=== PATIENT | male | born 1950 | race Caucasian/White ===

== ENCOUNTER 2019-11-24 04:10 | Inpatient (IN) | payer OTHER ==
--- OUTSIDE RECORDS SUMMARY | 2019-11-24 04:42 | XMS ---
:1950 Author Organization [facility] Support Name Relationship Address Phone RE Unavailable Unavailable Unavailable MADY HUI [id number] Re-disclosure Warning The records that you are about to access may contain information from federally- assisted alcohol or drug abuse programs. If such information is present, then the following federally mandated warning applies: This information has been disclosed to you from records protected by federal confidentiality rules (42 CFR part 2). The federal rules prohibit you from making any further disclosure of this information unless further disclosure is expressly permitted by the written consent of the person to whom it pertains or as otherwise permitted by 42 CFR part 2. A general authorization for the release of medical or other information is NOT sufficient for this purpose. The Federal rules restrict any use of the information to criminally investigate or prosecute any alcohol or drug abuse patient.The records that you are about to access may contain highly sensitive health information, the redisclosure of which is protected by Article 27-F of the [facility] Public Health law. If you continue you may haveaccess to information: Regarding HIV / AIDS; Provided by facilities licensed or operated by the [facility] Office of Mental Health; or Provided by the [facility] Office for People With Developmental Disabilities. If such information is present, then the following [facility] mandated warning applies: This information has been disclosed to you from confidential records which are protected by state law. State law prohibits you from making any further disclosure of this information without the specific written consent of the person to whom it pertains, or as otherwise permitted by law. Any unauthorized further disclosure in violation of state law may result in a fine or long term sentence or both. A general authorization for the release of medical or other information is NOT sufficient authorization for further disclosure. Insurance Providers Payer name Policy type Policy ID Covered Covered libertarian's Policy P ignacio / Coverage libertarian ID relationship to [employer] type ureña HIP MEDICARE [id number] VIP 1
[2019-11-24 05:15] LABS: BASO % 0.4 % (0-2.0); EOS % 2.1 % (0-4.5); HEMOGLOBIN 13.8 GM/dL (11.7-16.9); LYMPH % 26.9 % (8-40); MCH 30.3 pg (25.7-33.7); MCHC 33.7 g/dl (32.0-35.9); MEAN CELL VOLUME 90.1 fl (80-96); MEAN PLT VOLUME 9.2 fl (7.5-11.1); MONO % 7.7 % (3.8-10.2); NEUT % 62.9 % (42.8-82.8); PLATELET COUNT 191 K/MM3 (134-434); RBC 4.55 M/mm3 (4.00-5.60); RDW 13.6 % (11.9-15.9); WHITE BLOOD COUNT 6.8 K/mm3 (4.0-10.0)
--- NOTE | 2019-11-24 05:17 | PDOC ---
History of Present Illness - General Chief Complaint: Rectal Bleed Stated Complaint: RECTAL BLEED Time Seen by Provider: 11/24/19 04:11 - History of Present Illness Initial Comments: 11/24/19 04:56 HPI: 69 y/o M Jehovahs witness with hx of GI bleed, CVA/TIA s/p left CEA presenting with 2 episodes of large volume lower GI bleed. First episode occurred yesterday evening following dinner when he had the urge to defecate but had a large bloody BM. Following the bloody BM, he had a transient LLQ abd pain that resolved spontaneously. This morning around 2am he woke up with another urge to defecate and had another large bloody BM. This time he went to shower and felt generalized weakness after getting out and fell forward and caught himself on his hands and knees. He denies head trauma, LOC, fever, chills, chest pain, SOB, n/v, diaphoresis, dysuria, hematuria PMHx: as noted above ROS: as noted SHx: Denies tobacco use; no alcohol use; no rec drugs Allergies: NKDA ROS: GENERAL/CONSTITUTIONAL: No fever or chills. +gen weakness. HEAD, EYES, EARS, NOSE AND THROAT: No change in vision. No ear pain or discharge. No sore throat. CARDIOVASCULAR: No chest pain or shortness of breath RESPIRATORY: No cough, wheezing, or hemoptysis. GASTROINTESTINAL: No nausea, vomiting, diarrhea or constipation. GENITOURINARY: No dysuria, frequency, or change in urination. MUSCULOSKELETAL: No joint or muscle swelling or pain. No neck or back pain. SKIN: No rash NEUROLOGIC: No headache, vertigo, loss of consciousness, or change in stren gth/sensation. ENDOCRINE: No increased thirst. No abnormal weight change HEMATOLOGIC/LYMPHATIC: No anemia, easy bleeding, or history of blood clots. ALLERGIC/IMMUNOLOGIC: No hives or skin allergy. PE: GENERAL: Awake, alert, and fully oriented, no acute distress HEAD: No signs of trauma, normocephalic, atraumatic EYES: EOMI, sclera anicteric, conjunctiva clear without pallor ENT: Auricles normal inspection, hearing grossly normal, nares patent, oropharynx clear without exudates. dry mucosa NECK: Normal ROM, no lymphadenopathy LUNGS: No increased work of breathing, symmetrical chest rise, clear to auscultation bilaterally, no wheezes, crackles or rhonchi HEART: Regular rate, regular rhythm, normal S1 and S2, no murmur, peripheral pulses 2+ and equal bilaterally. ABDOMEN: Soft, nondistended, nontender. No guarding, no rebound. No masses. No CVAT MUSCULOSKELETAL: FROM NEUROLOGICAL: Cranial nerves II through XII grossly intact. Normal speech, stable gait, no focal sensorimotor deficits SKIN: Warm, Dry, normal turgor, no rashes or lesions noted Past History - Psycho-Social/Smoking History Smoking History: Never smoked Have you smoked in the past 12 months: No Information on smoking cessation initiated: No - Substance Abuse Hx (Audit-C & DAST Scrn) How often the patient has a drink containing alcohol: Never Score: In Men: 4 or > Positive; In Women: 3 or > Positive: 0 Screen Result (Pos requires Nsg. Audit-10AR): Negative In the last yr the pt used illegal drug/Rx for NonMed reason: No Score: Yes response is considered Positive: 0 Screen Result (Positive result requires Nsg. DAST-10): Negative *Physical Exam - Vital Signs Last Vital Signs Temp Pulse Resp BP Pulse Ox 97.8 F 91 H 20 144/83 97 11/24/19 04:15 11/24/19 04:15 11/24/19 04:15 11/24/19 04:15 11/24/19 04:15 ED Treatment Course - LABORATORY CBC & Chemistry Diagram: 11/24/19 00:47 11/24/19 00:47 Medical Decision Making - Medical Decision Making 11/24/19 05:17 69 y/o M Jehovahs witness with hx of GI bleed, CVA/TIA s/p left CEA presenting with 2 episodes of large volume lower GI bleed associated with transient LLQ abd pain. HR 91, AF. PE with dry mucosa otherwise unremakrable -cbc, cmp, t&s, coags, fobt, ekg -ct abd/pel 11/24/19 06:37 will signout to followup CT and admit for GI bleed Discharge - Discharge Information Problems reviewed: Yes Clinical Impression/Diagnosis: GI bleed Condition: Stable - Follow up/Referral Referrals: Marychuy Campbell MD [Primary Care Provider] - - Patient Discharge Instructions - Post Discharge Activity
--- NOTE | 2019-11-24 05:24 | PDOC ---
Attending Attestation - Resident Resident Name: Enoch Bass - ED Attending Attestation I have performed the following: I have examined & evaluated the patient, The case was reviewed & discussed with the resident, I agree w/resident's findings & plan, Exceptions are as noted - HPI HPI: 11/24/19 07:25 See resident HPI - Physicial Exam PE: 11/24/19 07:26 Agree with documented exam - Medical Decision Making 11/24/19 07:26 Jehovahs witness here with BRBPR, 2 episodes tonight, a/w lightheadedness in shower. hemorrhoid, diverticulosis? colitis? ibd, ischemia f/u labs, ekg, fobt, lactate fobt neg lactate 2.6 ekg LBBB, no old ekg, no chest pain, does not meet sgarbossa ivf, repeat lactate f/u troponin f/u cta ap will need admission Discharge - Discharge Information Problems reviewed: Yes Clinical Impression/Diagnosis: GI bleed Condition: Stable - Follow up/Referral Referrals: Marychuy Campbell MD [Primary Care Provider] - - Patient Discharge Instructions - Post Discharge Activity
[2019-11-24 05:28] LABS: INR 0.99 (0.83-1.09); PROTHROMBIN TIME (PATIENT) 11.7 SEC (9.7-13.0)
[2019-11-24 05:31] LABS: ACTIVATED PTT 21.7 SECONDS (25.2-36.5)
[2019-11-24 05:38] LABS: ALBUMIN 3.6 g/dl (3.4-5.0); ALK PHOS 76 U/L (45-117); ANION GAP 7 MMOL/L (8-16); BILIRUBIN,TOTAL 0.3 mg/dL (0.2-1); BLOOD UREA NITROGEN 11.5 mg/dL (7-18); CALCIUM 8.1 mg/dL (8.5-10.1); CHLORIDE 106 mmol/L (98-107); CO2 25 mmol/L (21-32); CREATININE 0.9 mg/dL (0.55-1.3); GLUCOSE,RANDOM 208 mg/dL (74-106); POTASSIUM 4.3 mmol/L (3.5-5.1); SGOT/AST 12 U/L (15-37); SGPT/ALT 25 U/L (13-61); SODIUM 138 mmol/L (136-145); TOT PROT 6.7 g/dl (6.4-8.2)
[2019-11-24] MEDS ORDERED: SODIUM CHLORIDE 1,000 ML IV STA (06:18)
--- NOTE | 2019-11-24 07:25 | PDOC ---
*Physical Exam - Vital Signs Last Vital Signs Temp Pulse Resp BP Pulse Ox 97.8 F 88 17 118/68 97 11/24/19 06:52 11/24/19 06:52 11/24/19 06:52 11/24/19 06:52 11/24/19 06:52 - Physical Exam General Appearance: Yes: Nourished, Appropriately Dressed. No: Apparent Distress HEENT: positive: EOMI, TRINI, Normal ENT Inspection Neck: positive: Trachea midline, Supple Respiratory/Chest: positive: Lungs Clear, Normal Breath Sounds Cardiovascular: positive: Regular Rhythm, Regular Rate Gastrointestinal/Abdominal: positive: Soft. 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 NML intact, Fully Oriented, Alert ED Treatment Course - LABORATORY CBC & Chemistry Diagram: 11/24/19 08:40 11/24/19 00:47 - ADDITIONAL ORDERS Additional order review: Laboratory Results 11/24/19 11/24/19 11/24/19 00:47 00:47 00:47 PT with INR 11.70 INR 0.99 PTT (Actin FS) 21.7 L Sodium Potassium Chloride Carbon Dioxide Anion Gap BUN Creatinine Est GFR (CKD-EPI)AfAm Est GFR (CKD-EPI)NonAf Random Glucose Lactic Acid 2.6 H* Calcium Total Bilirubin AST ALT Alkaline Phosphatase Total Protein Albumin Stool Occult Blood Negative 11/24/19 00:47 PT with INR INR PTT (Actin FS) Sodium 138 Potassium 4.3 Chloride 106 Carbon Dioxide 25 Anion Gap 7 L BUN 11.5 Creatinine 0.9 Est GFR (CKD-EPI)AfAm 99.94 Est GFR (CKD-EPI)NonAf 86.23 Random Glucose 208 H Lactic Acid Calcium 8.1 L Total Bilirubin 0.3 AST 12 L ALT 25 Alkaline Phosphatase 76 Total Protein 6.7 Albumin 3.6 Stool Occult Blood 11/24/19 00:47 RBC 4.55 MCV 90.1 MCHC 33.7 RDW 13.6 MPV 9.2 Neutrophils % 62.9 Lymphocytes % 26.9 Monocytes % 7.7 Eosinophils % 2.1 Basophils % 0.4 Medical Decision Making - Medical Decision Making 11/24/19 07:19 - Received as signout from night teaM This is a 69 y/o male with a PMH of TIA, L. sided CVA presenting to the ED due to 2 episodes of lower GI bleed. The first episode was last night. He described it as a large amount of bright red blood, no clots, and associated with LLQ abdominal pain. At 2a.m. he was woken up from sleep and had another episode. This episode was associate with pre-syncope, he did not hit his head, no LOC. - Jehovahs Witness - does not want blood products Stable vitals- Not hypotensive, not tacycardic Patient is full conversational, non toxic in no distress. Vital Signs Temp Pulse Resp BP Pulse Ox 97.8 F 88 17 118/68 97 11/24/19 06:52 11/24/19 06:52 11/24/19 06:52 11/24/19 06:52 11/24/19 06:52 Waiting in CTA abd/pelvis Finish liter > repeat LA Admit GI bleed for endoscopy/colonoscopy 11/24/19 07:54 Patient had another episode of bright red blood in toilet when he went to the bathroom - Remains hemodynamically stable 11/24/19 08:31 IMPRESSION: Possible mild fat stranding identified adjacent to the distal descending colon could represent early colitis or diverticulitis, however clinical correlation is recommended. Large stool volume demonstrated in the distal rectum. Moderate prostatomegaly. Hepatomegaly with diffuse fatty infiltration. - Will give Levo/Flagyl to cover for diverticulitis - Patient admitted to Dr. Mitchell Discharge - Discharge Information Problems reviewed: Yes Clinical Impression/Diagnosis: GI bleed Qualifiers: GI bleed type/associated pathology: unspecified gastrointestinal hemorrhage type Qualified Code(s): K92.2 - Gastrointestinal hemorrhage, unspecified Condition: Stable - Follow up/Referral - Patient Discharge Instructions - Post Discharge Activity
--- OUTSIDE RECORDS SUMMARY | 2019-11-24 09:00 | XMS ---
:1950 Author Organization [facility] Support Name Relationship Address Phone RE, RETIRED Unavailable Unavailable Unavailable RE Unavailable Unavailable Unavailable MADY HUI [address] [place] [id number] Re-disclosure Warning The records that you are [...] is protected by Article 27-F of the [facility] Public Health law. If you continue you may haveaccess to information: Regarding HIV / AIDS; Provided by facilities licensed or operated by the [facility] Office of Mental Health; or Provided by the [facility] Office for People With Developmental Disabilities. If such information is present, then the following [facility] mandated warning applies: This information has [...] law may result in a fine or fci sentence or both. A general authorization for the release of medical or other information is NOT sufficient authorization for further disclosure. Insurance Providers Payer name Policy type Policy ID Covered Covered libertarian's Policy P ignacio / Coverage libertarian ID relationship to [employer] type ure[place] HIP MEDICARE [id number] VIP 1
--- NOTE | 2019-11-24 09:12 | HP ---
Admitting History and Physical - Admission Chief Complaint: Acute rectal bleeding History of Present Illness: This 69 yr old male (Jehovah witness) with PMH of GI bleeding 4 years ago, CVA/TIA, s/p left carotid endarterectomy admitted via ER with an acute rectal bleeding 4 episodes within past 2 days and acute lightheadedness. 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 Cardiovascular: No: AFIB, Aneurysm, Aortic Insufficiency, Aortic Stenosis, CAD, CHF, Deep Vein Thrombosis, HTN, Hyperlipdemia, MT, Mitral Insufficiency, Mitral Stenosis, Murmur, Pulmonary Hypertension, Other Pulmonary: No: Asthma, Bronchitis, Cancer, COPD, O2 Dependent, Pneumonia, Prev iously Intubated, Pulmonary Embolus, Pulmonary Fibrosis, Sleep Apnea, Other Gastrointestinal: Yes: Diverticulosis, GI Bleed Hepatobiliary: No: Cirrhosis, Cholelithiasis, Cholecystitis, Choledocholithiasis, Hepatitis A, Hepatitis B, Hepatitis C, Other Renal/: No: Renal Failure, Renal Inusuff, BPH, Cancer, Hematuria, Hemodi alysis, Neurogenic Bladder, Renal Calculi, UTI, Other Heme/Onc: No: Anemia, B12 Deficiency, Bleeding Disorder, Cancer, Current Chemotherapy, Current Radiation Therapy, Hemochromatosis, Hypercoaguable State, Myeloproliferative Synd, Sickle Cell Disease, Sickle Cell Trait, Thr ombocytopenia, Other Infectious Disease: No: AIDS, C-Diff, Herpes Zoster, HIV, MRSA, STD's, Tuberculosis, VREF, Other Psych: No: Addictions, Anxiety, Bipolar, Depression, Panic, Psychosis, Schizophrenia, Other Musculoskeletal: No: Bursitis, Chronic low back pain, Hemiparesis, Hemiplegia, Osteoarthritis, Paraplegia, Other Rheumatology: No: Fibromyalgia, Gout, Lupus, Rheumatoid Arthritis, Sarcoidosis, Vasculitis, Other ENT: No: Allergic Rhinitis, Sinusitis, Other Endocrine: No: Calvert's Disease, Nany's Disease, Diabetes Insipidus, Diabetes Mellitus, Hyperparathyroidism, Hyperthyroidism, Hypothyroidism, Osteopenia, SIADH, Other Dermatology: No: Basal Cell, Cellulitis, Eczema, Melanoma, Psoriasis, Squamous Cell, Other - Past Surgical History Past Surgical History: Yes: Carotid Endarterectomy (left) - Smoking History Smoking history: Never smoked Have you smoked in the past 12 months: No Home Medications - Allergies Allergies/Adverse Reactions: Allergies Allergy/AdvReac Type Severity Reaction Status Date / Time No Known Allergies Allergy Verified 11/24/19 06:40 Review of Systems - Review of Systems Constitutional: reports: No Symptoms Eyes: reports: No Symptoms HENT: reports: No Symptoms Neck: reports: No Symptoms Cardiovascular: reports: No Symptoms Respiratory: reports: No Symptoms Gastrointestinal: reports: Rectal Bleeding Genitourinary: reports: No Symptoms Breasts: reports: No Symptoms Reported Musculoskeletal: reports: No Symptoms Integumentary: reports: No Symptoms Neurological: reports: No Symptoms Endocrine: reports: No Symptoms Hematology/Lymphatic: reports: No Symptoms Psychiatric: reports: No Symptoms Physical Examination Vital Signs: Vital Signs Temperature 97.8 F 11/24/19 06:52 Pulse Rate 88 11/24/19 06:52 Respiratory Rate 17 11/24/19 06:52 Blood Pressure 118/68 11/24/19 06:52 O2 Sat by Pulse Oximetry (%) 97 11/24/19 06:52 Constitutional: Yes: Well Nourished, No Distress, Calm Eyes: Yes: Conjunctiva Clear, EOM Intact HENT: Yes: Atraumatic, Normocephalic Neck: Yes: Supple, Trachea Midline Cardiovascular: Yes: Regular Rate and Rhythm Respiratory: Yes: Regular, CTA Bilaterally Gastrointestinal: Yes: Normal Bowel Sounds, Soft, Other (hepatomegaly, diffuse fatty infiltraion of the liver) ...Rectal Exam: Yes: Guaiac Negative Renal/: Yes: Other (moderate prostatomegaly) Breast(s): Yes: WNL Musculoskeletal: Yes: WNL Extremities: Yes: WNL Edema: No Peripheral Pulses WNL: Yes Integumentary: Yes: WNL Neurological: Yes: WNL ...Motor Strength: WNL Psychiatric: Yes: WNL Labs: CBC, BMP 11/24/19 00:47 11/24/19 00:47 Imaging - Results Cat Scan: Report Reviewed EKG: Report Reviewed Other: Report Reviewed (lab data reviewed) Problem List - Problems (1) Lightheadedness Code(s): R42 - DIZZINESS AND GIDDINESS (2) Hepatomegaly Code(s): R16.0 - HEPATOMEGALY, NOT ELSEWHERE CLASSIFIED (3) Fatty infiltration of liver Code(s): K76.0 - FATTY (CHANGE OF) LIVER, NOT ELSEWHERE CLASSIFIED (4) BPH (benign prostatic hyperplasia) Code(s): N40.0 - BENIGN PROSTATIC HYPERPLASIA WITHOUT LOWER URINRY TRACT SYMP (5) GI bleed Code(s): K92.2 - GASTROINTESTINAL HEMORRHAGE, UNSPECIFIED (6) Diverticulosis Code(s): K57.90 - DVRTCLOS OF INTEST, PART UNSP, W/O PERF OR ABSCESS W/O BLEED (7) Diverticulitis Code(s): K57.92 - DVTRCLI OF INTEST, PART UNSP, W/O PERF OR ABSCESS W/O BLEED (8) Colitis Code(s): K52.9 - NONINFECTIVE GASTROENTERITIS AND COLITIS, UNSPECIFIED Assessment/Plan Assessment/plan: acute fresh rectal bleeding, acute lightheadedness, diverticulosis, early diverticulitis/ischemic colitis, ?colonic angidysplasia, s/p left CEA, personal hx of alcohol consumption; IV fluids for hydration; IV Levofloxacin and Metronidazole for early acute diverticulitis/colitis; consult to GI and ID; SCD's for DVT prophylaxis; physical therapy for deconditioning.
[2019-11-24 09:27] LABS: HEMATOCRIT 40.6 % (35.4-49); HEMOGLOBIN 13.5 GM/dL (11.7-16.9); MCH 30.2 pg (25.7-33.7); MCHC 33.3 g/dl (32.0-35.9); MEAN CELL VOLUME 90.9 fl (80-96); PLATELET COUNT 209 K/MM3 (134-434); RBC 4.47 M/mm3 (4.00-5.60); RDW 13.8 % (11.9-15.9); WHITE BLOOD COUNT 9.2 K/mm3 (4.0-10.0)
--- NOTE | 2019-11-24 10:50 | CON.GI ---
Consult Consult Specialty:: Gastroenterology Referred by:: Dr Mitchell Reason for Consultation:: Rectal bleeding - History of Present Illness Chief Complaint: Rectal bleeding History of Present Illness: 69M presents with rectal bleeding. He is a [employer]. The CTA does not reveal a bleeding focus but there are inflammatory changes in the descending colon which may represent ischemic colitis. He has had 4 episodes of painless hematochezia since 5pm but no BMs since this morning at 7AM. He had a colonoscopy and EGD in [place], [place] 4 years ago. He was told of an ulcer related to Motrin but of no colonic findings. CT reveals diverticulosis and a fatty liver. He avoids NSAIDs. he has been very constipated despite using a fiber supplement . 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year[place] age 29 History of Recent Travel: No Home Medications - Allergies Allergies/Adverse Reactions: Allergies Allergy/AdvReac Type Severity Reaction Status Date / Time No Known Allergies Allergy Verified 11/24/19 06:40 Family Medical History Family Hx Cancer: Sister ( of gastric cancer age 60) Family Hx Gastrointestinal Disorder: Father ( 81 alcoholic cirrhosis) Other Family History: mother lived to Physical Exam-GI Vital Signs: Vital Signs Temperature 97.8 F 11/24/19 06:52 Pulse Rate 88 11/24/19 06:52 Respiratory Rate 17 11/24/19 06:52 Blood Pressure 118/68 11/24/19 06:52 O2 Sat by Pulse Oximetry (%) 97 11/24/19 07:20 CBC,CMP WBC 9.2 K/mm3 (4.0-10.0) 11/24/19 08:40 RBC 4.47 M/mm3 (4.00-5.60) 11/24/19 08:40 Hgb 13.5 GM/dL (11.7-16.9) 11/24/19 08:40 Hct 40.6 % (35.4-49) 11/24/19 08:40 MCV 90.9 fl (80-96) 11/24/19 08:40 MCH 30.2 pg (25.7-33.7) 11/24/19 08:40 MCHC 33.3 g/dl (32.0-35.9) 11/24/19 08:40 RDW 13.8 % (11.9-15.9) 11/24/19 08:40 Plt Count 209 K/MM3 (134-434) 11/24/19 08:40 MPV 10.0 fl (7.5-11.1) 11/24/19 08:40 Absolute Neuts (auto) 4.3 K/mm3 (1.5-8.0) 11/24/19 00:47 Neutrophils % 62.9 % (42.8-82.8) 11/24/19 00:47 Lymphocytes % 26.9 % (8-40) 11/24/19 00:47 Monocytes % 7.7 % (3.8-10.2) 11/24/19 00:47 Eosinophils % 2.1 % (0-4.5) 11/24/19 00:47 Basophils % 0.4 % (0-2.0) 11/24/19 00:47 Nucleated RBC % 0 % (0-0) 11/24/19 00:47 Sodium 138 mmol/L (136-145) 11/24/19 00:47 Potassium 4.3 mmol/L (3.5-5.1) 11/24/19 00:47 Chloride 106 mmol/L (98-107) 11/24/19 00:47 Carbon Dioxide 25 mmol/L (21-32) 11/24/19 00:47 Anion Gap 7 MMOL/L (8-16) L 11/24/19 00:47 BUN 11.5 mg/dL (7-18) 11/24/19 00:47 Creatinine 0.9 mg/dL (0.55-1.3) 11/24/19 00:47 Est GFR (CKD-EPI)AfAm 99.94 11/24/19 00:47 Est GFR (CKD-EPI)NonAf 86.23 11/24/19 00:47 Random Glucose 208 mg/dL (74-106) H 11/24/19 00:47 Lactic Acid 2.9 mmol/L (0.4-2.0) H* 11/24/19 08:40 Calcium 8.1 mg/dL (8.5-10.1) L 11/24/19 00:47 Iron 65 ug/dL (50-175) 11/24/19 00:47 TIBC 294 ug/dL (250-450) 11/24/19 00:47 Iron Saturation 22 % (17.5-39) 11/24/19 00:47 Unsaturated IBC 229 ug/dL (200-275) 11/24/19 00:47 Ferritin 126.3 ng/ml (8-388) 11/24/19 00:47 Total Bilirubin 0.3 mg/dL (0.2-1) 11/24/19 00:47 AST 12 U/L (15-37) L 11/24/19 00:47 ALT 25 U/L (13-61) 11/24/19 00:47 Alkaline Phosphatase 76 U/L (45-117) 11/24/19 00:47 Troponin I < 0.02 ng/ml (0.00-0.05) 11/24/19 00:47 Total Protein 6.7 g/dl (6.4-8.2) 11/24/19 00:47 Albumin 3.6 g/dl (3.4-5.0) 11/24/19 00:47 Current Medications Generic Name Dose Route Start Last Admin Trade Name Freq PRN Reason Stop Dose Admin Dextrose/Sodium Chloride 20 meq in 1,000 mls @ 100 mls/hr 11/24/19 09:30 11/24/19 11:15 Dextrose 5%-Normal Saline+20 Meq Kcl - IV 100 mls/hr ASDIR MATTI Administration Constitutional: Yes: Anxious Eyes: Yes: Conjunctiva Clear HENT: Yes: Normocephalic Neck: Yes: Trachea Midline Cardiovascular: Yes: Regular Rate and Rhythm Respiratory: Yes: CTA Bilaterally Gastrointestinal Inspection: Yes: WNL ...Auscultate: Yes: Normoactive Bowel Sounds ...Palpate: Yes: Soft, Other (nontender) ...Rectal Exam: Yes: Guaiac Positive (fresh blood on digital exam, no masses, has hemorrhoids) Edema: No Neurological: Yes: Alert, Oriented Labs: CBC, BMP 11/24/19 08:40 11/24/19 00:47 INR, PTT INR 0.99 (0.83-1.09) 11/24/19 00:47 Problem List - Problems (1) Rectal bleeding Code(s): K62.5 - HEMORRHAGE OF ANUS AND RECTUM (2) History of CVA (cerebrovascular accident) Code(s): Z86.73 - PRSNL HX OF TIA (TIA), AND CEREB INFRC W/O RESID DEFICITS (3) Diverticulosis Code(s): K57.90 - DVRTCLOS OF INTEST, PART UNSP, W/O PERF OR ABSCESS W/O BLEED (4) Fatty infiltration of liver Code(s): K76.0 - FATTY (CHANGE OF) LIVER, NOT ELSEWHERE CLASSIFIED Assessment/Plan Impression: - Given the normal Hb this bleeding may prove to be hemorrhoidal in origin but the descending colon findings on CT raise the possibility if ischemic colitis. He could alternatively have bleeding from diverticulosis or angiodysplasias. A bleeding malignancy or stercoral ulcer are less likely etiologies. He is a Zoroastrianism so will defer colonoscopy preparation until the bleeding. stops as this could increase the rate of bleeding. If bleeding increases then CTA will need to be repeated with the intention of doing IR embolization - Personal h/o peptic ulcer and FH of stomach cancer - Fatty liver Plan: - Clear liquids - Miralax TID - Bowel prep on Wednesday - I have discussed colonoscopy and EGD (given his ulcer history and FH of gastric cancer) in detail with Theodore and informed him of the potential for such complications as perforation and hemorrhage and he has given an informed consent. He also consented for rubber band ligation of hemorrhoids. Dr Galeas will be covering this weekend
[2019-11-24 11:14] LABS: IRON SERUM 65 ug/dL (50-175); TOTAL IRON BINDING CAPACITY 294 ug/dL (250-450)
[2019-11-24] MEDS: D5-NS + 20 MEQ KCL - 20 MEQ/1,000 ML INFUS.BAG IV SCH ×2 (11:15→23:05)
--- NOTE | 2019-11-24 12:40 | EKG ---
Test Reason : Blood Pressure : / mmHG Vent. Rate : 087 BPM Atrial Rate : 087 BPM P-R Int : 162 ms QRS Dur : 144 ms QT Int : 396 ms P-R-T Axes : 034 007 106 degrees QTc Int : 476 ms SINUS RHYTHM WITH OCCASIONAL PREMATURE VENTRICULAR COMPLEXES LEFT BUNDLE BRANCH BLOCK ABNORMAL ECG NO PREVIOUS ECGS AVAILABLE Confirmed by JORDAN ROJAS MD ([id number]) on 11/24/2019 12:40:06 PM Referred By: Confirmed By:JORDAN ROJAS MD
--- NOTE | 2019-11-24 15:07 | PN ---
Progress Note (short form) - Note Progress Note: ID CONSULT DICTATED LOWER GI BLEED ? COLITIS OBTAIN C/S EMPIRIC CEFTRIAXONE/ FLAGYL
--- NOTE | 2019-11-24 15:47 | CONS ---
DATE OF CONSULTATION: 11/24/2019 HISTORY: The patient is a 69-year-old male, history of TIA and stroke, evaluated for rectal bleeding. He was admitted to the hospital on November 24, 2019, after having multiple episodes of rectal bleeding. He reports that approximately 1 day prior to admission he had developed recurrent episodes of rectal bleeding associated with left lower quadrant abdominal pain. He presented to the emergency room where he was evaluated, and CAT scan of the abdomen and pelvis was performed and showed possible colitis/diverticulitis involving the distal descending colon. He was seen in consultation by GI. According to the notes, he had had colonoscopy and EGD in [place] approximately 4 years ago. He was told he had an ulcer related to Motrin but no colonic findings. His course has been complicated by abdominal discomfort. At the present time he is awake and alert. He is supine in bed on a stretcher in no acute distress. He denies any nausea, vomiting. No associated fever or chills. Patient lives at home with family members. He denies any ill family members. No recent travel, no recent antibiotic therapy. He originally is from [place], was living in [place] for over 20 years and recently relocated to the [facility]. PAST MEDICAL HISTORY: Positive for TIA and stroke. PAST SURGICAL HISTORY: Status post carotid endarterectomy. ALLERGIES: No known allergies. MEDICATIONS: Include Levaquin, Flagyl. SOCIAL HISTORY: Occasional alcohol use, nonsmoker. REVIEW OF SYSTEMS: Neurologic: No loss of consciousness, seizure activity, focal weakness. Cardiac: Negative chest pain or palpitations. Respiratory: Negative cough or sputum production. Gastrointestinal: As per HPI. Genitourinary: Negative for urinary tract infection. LABORATORY DATA: White count 9.2, hematocrit 40.6, platelets 209, INR 0.9, creatinine 0.9, lactic acid 2.3. PHYSICAL EXAMINATION: General: He is awake and alert. He is not acutely toxic appearing. Vital Signs: Temperature 98, blood pressure 103/70, pulse 86, regular. Respirations 20 per minute. HEENT: Sclerae are anicteric. Cardiovascular: Heart sounds S1, S2. Lungs: Clear. Abdomen: Soft. No tenderness elicited. No mass, rebound, or rigidity. Extremities: Negative for edema. IMPRESSION: 1. Probable lower gastrointestinal bleeding. 2. Possible colitis/diverticulitis. 3. Lactic acidosis. Will obtain cultures. Empiric antibiotic coverage for possible diverticulitis with ceftriaxone and Flagyl. GI followup. Will follow. Thank you for the kind referral. JORDAN GARCIA M.D. MARLEN/[id number]
[2019-11-24] MEDS ORDERED: CEFTRIAXONE 2 GM/100 ML BAG IVPB ONE (16:59)
[2019-11-24] MEDS: CEFTRIAXONE 2 GM in DEXTROSE 5%-WATER 100 ML IVPB SCH (17:05)
[2019-11-24] MEDS: POLYETHYLENE GLYCOL 3350 119 GM BTL PO SCH (21:47)
[2019-11-25 02:48] VITALS: BMI 26.8
--- NOTE | 2019-11-25 05:59 | PN ---
Progress Note, Physician Chief Complaint: Patient seen and examined at the bedside, no acute events from last night, no signs of rectal bleeding. History of Present Illness: This 69 yr old male with PMH of GI bleeding 4 yrs ago, CVA/TIA, and left carotid endarterectomy admitted via ER with an acute rectal bleeding. - Current Medication List Current Medications: Active Medications Bisacodyl (Dulcolax -) 20 mg PO ONCE ONE Stop: 11/26/19 18:01 Dextrose/Sodium Chloride (Dextrose 5%-Normal Saline+20 Meq Kcl -) 20 meq in 1,000 mls @ 100 mls/hr IV ASDIR MATTI Last Admin: 11/24/19 23:05 Dose: 100 mls/hr Documented by: Ceftriaxone Sodium 2 gm/ (Dextrose) 100 mls @ 100 mls/hr IVPB DAILY MATTI; Protocol Last Admin: 11/24/19 17:05 Dose: 100 mls/hr Documented by: Metronidazole (Flagyl 500mg Premixed Ivpb -) 500 mg in 100 mls @ 100 mls/hr IVPB Q8H-IV [facility]TI Last Admin: 11/25/19 01:28 Dose: 100 mls/hr Documented by: Polyethylene Glycol (Miralax (For Daily Use) -) 17 gm PO TID [facility] Last Admin: 11/24/19 21:47 Dose: 17 gm Documented by: Polyethylene Glycol/Electrolytes (Golytely Solution -) 4,000 ml PO ONCE ONE Stop: 11/26/19 09:01 - Objective Vital Signs: Vital Signs Temperature 97.5 F L 11/25/19 01:00 Pulse Rate 82 11/25/19 01:00 Respiratory Rate 18 11/25/19 01:00 Blood Pressure 139/81 11/25/19 01:00 O2 Sat by Pulse Oximetry (%) 99 11/25/19 01:00 Constitutional: Yes: Well Nourished, No Distress, Calm Eyes: Yes: Conjunctiva Clear, EOM Intact HENT: Yes: Atraumatic, Normocephalic Neck: Yes: Supple, Trachea Midline Cardiovascular: Yes: Regular Rate and Rhythm Respiratory: Yes: Regular, CTA Bilaterally Gastrointestinal: Yes: Normal Bowel Sounds, Soft ...Rectal Exam: Yes: Deferred Genitourinary: Yes: WNL Breast(s): Yes: WNL Musculoskeletal: Yes: WNL Extremities: Yes: WNL Edema: No Peripheral Pulses WNL: Yes Integumentary: Yes: WNL Neurological: Yes: WNL ...Motor Strength: WNL Psychiatric: Yes: WNL Labs: CBC, BMP 11/24/19 08:40 11/24/19 00:47 INR, PTT INR 0.99 (0.83-1.09) 11/24/19 00:47 - ....Imaging Other: Report Reviewed (lab data reviewed) Problem List - Problems (1) Lightheadedness Code(s): R42 - DIZZINESS AND GIDDINESS (2) Hepatomegaly Code(s): R16.0 - HEPATOMEGALY, NOT ELSEWHERE CLASSIFIED (3) Fatty infiltration of liver Code(s): K76.0 - FATTY (CHANGE OF) LIVER, NOT ELSEWHERE CLASSIFIED (4) BPH (benign prostatic hyperplasia) Code(s): N40.0 - BENIGN PROSTATIC HYPERPLASIA WITHOUT LOWER URINRY TRACT SYMP (5) GI bleed Code(s): K92.2 - GASTROINTESTINAL HEMORRHAGE, UNSPECIFIED Qualifiers: GI bleed type/associated pathology: unspecified gastrointestinal hemorrhage type Qualified Code(s): K92.2 - Gastrointestinal hemorrhage, unspecified (6) Diverticulosis Code(s): K57.90 - DVRTCLOS OF INTEST, PART UNSP, W/O PERF OR ABSCESS W/O BLEED (7) Diverticulitis Code(s): K57.92 - DVTRCLI OF INTEST, PART UNSP, W/O PERF OR ABSCESS W/O BLEED (8) Colitis Code(s): K52.9 - NONINFECTIVE GASTROENTERITIS AND COLITIS, UNSPECIFIED Assessment/Plan Assessment/plan: acute rectal bleeding, acute lightheadedness, diverticulosis, early diverticulitis/colitis, ischemic colitis, s/p CVA/TIA, s/p left carotid endarterectomy, lactic acidosis, hepatomegaly with diffuse fatty infiltration of the liver, moderate prostatomegaly, personal hx of peptic ulcer disease; IV metronidazole and Ceftriaxone as per ID for acute diverticulitis/colitis; IV fluids for hydration; SCD'S and physical therapy for DVT prophylaxis; out of bed in chair as tolerated.
[2019-11-25] MEDS: POLYETHYLENE GLYCOL 3350 119 GM BTL PO SCH ×3 (06:02→21:16)
[2019-11-25 08:03] LABS: BASO % 0.5 % (0-2.0); HEMATOCRIT 31.5 % (35.4-49); HEMOGLOBIN 10.6 GM/dL (11.7-16.9); LYMPH % 24.9 % (8-40); MCH 30.4 pg (25.7-33.7); MCHC 33.7 g/dl (32.0-35.9); MEAN CELL VOLUME 90.2 fl (80-96); MEAN PLT VOLUME 9.1 fl (7.5-11.1); MONO % 7.9 % (3.8-10.2); NEUT % 63.7 % (42.8-82.8); PLATELET COUNT 162 K/MM3 (134-434); RBC 3.49 M/mm3 (4.00-5.60); RDW 13.5 % (11.9-15.9); WHITE BLOOD COUNT 5.4 K/mm3 (4.0-10.0)
[2019-11-25] MEDS ORDERED: ACETAMINOPHEN 325 MG TABLET (FP) PO PRN (08:10)
[2019-11-25 08:26] LABS: ALBUMIN 3.2 g/dl (3.4-5.0); BILIRUBIN,TOTAL 0.7 mg/dL (0.2-1); BLOOD UREA NITROGEN 8.2 mg/dL (7-18); CALCIUM 8.5 mg/dL (8.5-10.1); CREATININE 0.8 mg/dL (0.55-1.3); POTASSIUM 4.1 mmol/L (3.5-5.1); TOT PROT 5.6 g/dl (6.4-8.2)
[2019-11-25] MEDS ORDERED: DEXTROSE 5%-WATER 100 ML IVPB ONE (08:52)
[2019-11-25] MEDS: CEFTRIAXONE 2 GM in DEXTROSE 5%-WATER 100 ML IVPB SCH (10:55)
[2019-11-25] MEDS: D5-NS + 20 MEQ KCL - 20 MEQ/1,000 ML INFUS.BAG IV SCH (10:55)
--- NOTE | 2019-11-25 23:41 | PN ---
Progress Note (short form) - Note Progress Note: ID AWAKE IN BED +RECTAL BLEED NO C/O ABDOMINAL PAIN NO FEVER/CHILLS AFEBRILE WBC WNL BC (-) COR S1S2 LUNGS CLEAR ABDOMEN SOFT, NON TENDER LGIB R/O COLITIS LACTIC ACIDOSIS CONTINUE EMPIRIC CEFTRIAXONE/ FLAGYL
[2019-11-26] MEDS: D5-NS + 20 MEQ KCL - 20 MEQ/1,000 ML INFUS.BAG IV SCH ×3 (00:57→09:05)
[2019-11-26 04:24] LABS: HEMATOCRIT 28.3 % (35.4-49); HEMOGLOBIN 9.8 GM/dL (11.7-16.9); MCH 31.3 pg (25.7-33.7); MCHC 34.5 g/dl (32.0-35.9); MEAN CELL VOLUME 90.9 fl (80-96); MEAN PLT VOLUME 9.4 fl (7.5-11.1); PLATELET COUNT 170 K/MM3 (134-434); RBC 3.11 M/mm3 (4.00-5.60); RDW 13.8 % (11.9-15.9); WHITE BLOOD COUNT 5.5 K/mm3 (4.0-10.0)
[2019-11-26 04:45] LABS: ALBUMIN 3.1 g/dl (3.4-5.0); BILIRUBIN,TOTAL 0.3 mg/dL (0.2-1); BLOOD UREA NITROGEN 6.7 mg/dL (7-18); CALCIUM 8.3 mg/dL (8.5-10.1); CREATININE 0.8 mg/dL (0.55-1.3); TOT PROT 5.6 g/dl (6.4-8.2)
[2019-11-26] MEDS: POLYETHYLENE GLYCOL 3350 119 GM BTL PO SCH ×4 (05:43→21:00)
--- NOTE | 2019-11-26 08:30 | PN ---
Progress Note, Physician Chief Complaint: Patient seen and examined at the bedside, two bouts of rectal bleeding yesterday, no abdominal pain. History of Present Illness: This 69 yr old male with PMH of GI bleeding 4 years ago, CVA/TIA, left carotid endarterectomy admitted via ER with an acute rectal bleeding. - Current Medication List Current Medications: Active Medications Acetaminophen (Tylenol -) 650 mg PO Q6H PRN PRN Reason: PAIN 6-10 Bisacodyl (Dulcolax -) 20 mg PO ONCE ONE Stop: 11/26/19 18:01 Ceftriaxone Sodium 2 gm/ (Dextrose) 100 mls @ 100 mls/hr IVPB DAILY MATTI; Protocol Last Admin: 11/25/19 10:55 Dose: 100 mls/hr Documented by: Metronidazole (Flagyl 500mg Premixed Ivpb -) 500 mg in 100 mls @ 100 mls/hr IVPB Q8H-IV MATTI Last Admin: 11/26/19 01:30 Dose: 100 mls/hr Documented by: Dextrose/Sodium Chloride (Dextrose 5%-Normal Saline+20 Meq Kcl -) 20 meq in 1,000 mls @ 75 mls/hr IV ASDIR MATTI Last Admin: 11/25/19 10:55 Dose: 75 mls/hr Documented by: Dextrose/Sodium Chloride (Dextrose 5%-Normal Saline+20 Meq Kcl -) 20 meq in 1,000 mls @ 100 mls/hr IV ASDIR MATTI Last Admin: 11/26/19 01:04 Dose: 100 mls/hr Documented by: Influenza Virus Vaccine (Flulaval Quad 1345-3919 Syr) 60 mcg IM .ONCE ONE Stop: 11/25/19 10:01 Pneumococcal 13-Valent Conj Vacc (Prevnar 13 Syringe -) 0.5 ml IM .ONCE ONE Stop: 11/25/19 10:01 Polyethylene Glycol (Miralax (For Daily Use) -) 17 gm PO TID MATTI Last Admin: 11/26/19 05:51 Dose: Not Given Documented by: Polyethylene Glycol/Electrolytes (Golytely Solution -) 4,000 ml PO ONCE ONE Stop: 11/26/19 09:01 - Objective Vital Signs: Vital Signs Temperature 98.1 F 11/26/19 05:00 Pulse Rate 90 11/26/19 05:00 Respiratory Rate 20 11/26/19 05:00 Blood Pressure 129/62 11/26/19 05:00 O2 Sat by Pulse Oximetry (%) 98 11/26/19 05:00 Constitutional: Yes: Well Nourished, No Distress, Calm Eyes: Yes: Conjunctiva Clear, EOM Intact HENT: Yes: Atraumatic, Normocephalic Neck: Yes: Supple Cardiovascular: Yes: Regular Rate and Rhythm Respiratory: Yes: Regular, CTA Bilaterally Gastrointestinal: Yes: Normal Bowel Sounds, Soft ...Rectal Exam: Yes: Deferred Genitourinary: Yes: WNL Breast(s): Yes: WNL Musculoskeletal: Yes: WNL Extremities: Yes: WNL Edema: No Peripheral Pulses WNL: Yes Integumentary: Yes: WNL Neurological: Yes: WNL ...Motor Strength: WNL Psychiatric: Yes: WNL Labs: CBC, BMP 11/26/19 04:03 INR, PTT INR 0.99 (0.83-1.09) 11/24/19 00:47 - ....Imaging Other: Report Reviewed (lab data reviewed) Problem List - Problems (1) Lightheadedness Code(s): R42 - DIZZINESS AND GIDDINESS (2) Hepatomegaly Code(s): R16.0 - HEPATOMEGALY, NOT ELSEWHERE CLASSIFIED (3) Fatty infiltration of liver Code(s): K76.0 - FATTY (CHANGE OF) LIVER, NOT ELSEWHERE CLASSIFIED (4) BPH (benign prostatic hyperplasia) Code(s): N40.0 - BENIGN PROSTATIC HYPERPLASIA WITHOUT LOWER URINRY TRACT SYMP (5) GI bleed Code(s): K92.2 - GASTROINTESTINAL HEMORRHAGE, UNSPECIFIED Qualifiers: GI bleed type/associated pathology: unspecified gastrointestinal hemorrhage type Qualified Code(s): K92.2 - Gastrointestinal hemorrhage, unspecified (6) Diverticulosis Code(s): K57.90 - DVRTCLOS OF INTEST, PART UNSP, W/O PERF OR ABSCESS W/O BLEED (7) Diverticulitis Code(s): K57.92 - DVTRCLI OF INTEST, PART UNSP, W/O PERF OR ABSCESS W/O BLEED (8) Colitis Code(s): K52.9 - NONINFECTIVE GASTROENTERITIS AND COLITIS, UNSPECIFIED Assessment/Plan Assessment/plan: acute rectal bleeding, acute iron deficiency anemia secondary to blood loss, acute diverticultis/colitis, ischemic colitis, s/p CVA/TIA, s/p left CEA; IV Ceftriaxone and metronidazole for acute diverticulitis/colitis; IV fluids for hydration and hypotension; IV venofer for acute iron deficiency anemia secondary to blood loss; SCD'S and physical therapy for DVT prophylaxis; miralax and bisacodyl for constipation.
[2019-11-26 08:32] LABS: BASO % 0.6 % (0-2.0); EOS % 3.2 % (0-4.5); HEMATOCRIT 27.3 % (35.4-49); HEMOGLOBIN 9.2 GM/dL (11.7-16.9); MCH 30.4 pg (25.7-33.7); MCHC 33.7 g/dl (32.0-35.9); MEAN CELL VOLUME 90.4 fl (80-96); MONO % 7.6 % (3.8-10.2); NEUT % 61.6 % (42.8-82.8); PLATELET COUNT 170 K/MM3 (134-434); RBC 3.02 M/mm3 (4.00-5.60); RDW 13.6 % (11.9-15.9); WHITE BLOOD COUNT 4.9 K/mm3 (4.0-10.0)
[2019-11-26] MEDS ORDERED: DEXTROSE 5%-WATER 100 ML IVPB ONE (08:57)
[2019-11-26] MEDS ORDERED: PEG 3350/NA SULF BICARB CL/KCL 4000 ML SOLN.RECON PO ONE (09:00)
[2019-11-26] MEDS: CEFTRIAXONE 2 GM in DEXTROSE 5%-WATER 100 ML IVPB SCH (09:00)
[2019-11-26] MEDS ORDERED: IRON SUCROSE INJECTION 200 MG in SODIUM CHLORIDE 90 ML IVPB ONE (11:00)
[2019-11-26 17:05] LABS: BASO % 0.5 % (0-2.0); EOS % 2.9 % (0-4.5); HEMATOCRIT 27.1 % (35.4-49); HEMOGLOBIN 9.2 GM/dL (11.7-16.9); LYMPH % 31.2 % (8-40); MCH 31.1 pg (25.7-33.7); MCHC 33.8 g/dl (32.0-35.9); MEAN PLT VOLUME 9.8 fl (7.5-11.1); MONO % 7.3 % (3.8-10.2); NEUT % 58.1 % (42.8-82.8); PLATELET COUNT 164 K/MM3 (134-434); RBC 2.95 M/mm3 (4.00-5.60); RDW 13.6 % (11.9-15.9); WHITE BLOOD COUNT 5.2 K/mm3 (4.0-10.0)
--- NOTE | 2019-11-26 17:41 | PN.GI ---
GI Progress Note Subjective: patient tolerating bowel preparation, Hgb down to 9. He denies any chest pain, syncope. Lat bloody movement was at 3 AM - Objective Vital Signs: Vital Signs Temperature 97.6 F 11/26/19 13:00 Pulse Rate 78 11/26/19 13:00 Respiratory Rate 18 11/26/19 13:00 Blood Pressure 140/73 11/26/19 13:00 O2 Sat by Pulse Oximetry (%) 99 11/26/19 13:00 Constitutional: Obese Eyes: Yes: Conjunctiva Clear HENT: Yes: Atraumatic Neck: Yes: Supple Cardiovascular: Yes: Regular Rate and Rhythm Respiratory: Yes: CTA Bilaterally ...Palpate: Yes: Soft. No: Firm/Rigid, Guarding, Hepatomegaly, Mass, Pulsatile Mass, Splenomegaly, Tenderness Labs: CBC, BMP 11/26/19 16:19 11/26/19 04:03 INR, PTT INR 0.99 (0.83-1.09) 11/24/19 00:47 Problem List - Problems (1) Lower GI bleed Assessment/Plan: R> for EGD and colonoscopy in am patient was made aware. Code(s): K92.2 - GASTROINTESTINAL HEMORRHAGE, UNSPECIFIED
[2019-11-26] MEDS ORDERED: BISACODYL 5 MG TABLET.DR (FP) PO ONE (18:00)
--- NOTE | 2019-11-26 22:55 | PN ---
Progress Note, Physician Chief Complaint: RECEIVING PREP FOR COLONSCOPY NO C/O ABDOMINAL PAIN OR RECTAL BLEEDING NO FEVER/CHILLS WBC WNL - Current Medication List Current Medications: Active Medications Acetaminophen (Tylenol -) 650 mg PO Q6H PRN PRN Reason: PAIN 6-10 Ceftriaxone Sodium 2 gm/ (Dextrose) 100 mls @ 100 mls/hr IVPB DAILY MATTI; Protocol Last Admin: 11/26/19 09:00 Dose: 100 mls/hr Documented by: Metronidazole (Flagyl 500mg Premixed Ivpb -) 500 mg in 100 mls @ 100 mls/hr IVPB Q8H-IV MATTI Last Admin: 11/26/19 16:59 Dose: 100 mls/hr Documented by: Dextrose/Sodium Chloride (Dextrose 5%-Normal Saline+20 Meq Kcl -) 20 meq in 1,000 mls @ 100 mls/hr IV ASDIR MATTI Last Admin: 11/26/19 01:04 Dose: 100 mls/hr Documented by: Influenza Virus Vaccine (Flulaval Quad [id number] Syr) 60 mcg IM .ONCE ONE Stop: 11/25/19 10:01 Pneumococcal 13-Valent Conj Vacc (Prevnar 13 Syringe -) 0.5 ml IM .ONCE ONE Stop: 11/25/19 10:01 Polyethylene Glycol (Miralax (For Daily Use) -) 17 gm PO TID [facility] Last Admin: 11/26/19 21:00 Dose: 17 gm Documented by: - Objective Vital Signs: Vital Signs Temperature 98.3 F 11/26/19 18:00 Pulse Rate 81 11/26/19 18:00 Respiratory Rate 18 11/26/19 18:00 Blood Pressure 121/67 11/26/19 18:00 O2 Sat by Pulse Oximetry (%) 95 11/26/19 18:00 Constitutional: Yes: No Distress Eyes: Yes: Conjunctiva Clear Cardiovascular: Yes: Regular Rate and Rhythm, S1, S2 Respiratory: Yes: CTA Bilaterally Gastrointestinal: Yes: Normal Bowel Sounds, Soft Edema: No Labs: CBC, BMP 11/26/19 16:19 11/26/19 04:03 INR, PTT INR 0.99 (0.83-1.09) 11/24/19 00:47 Assessment/Plan LOWER GI BLEED R/O COLITIS FOR COLONOSCOPY CONTINUE EMPIRIC CEFTRIAXOME/ FLAGYL
[2019-11-27] MEDS: D5-NS + 20 MEQ KCL - 20 MEQ/1,000 ML INFUS.BAG IV SCH (04:13)
[2019-11-27] MEDS: POLYETHYLENE GLYCOL 3350 119 GM BTL PO SCH ×3 (05:43→21:11)
--- NOTE | 2019-11-27 08:19 | PN ---
Progress Note, Physician Chief Complaint: Patient seen and examined at the bedside, no acute events from last night, feeling well, no abdominal pain, no rectal bleeding. History of Present Illness: This 69 yr old male with PMH of GI bleeding 4 years ago, CVA/TIA, left CEA admitted via ER with an acute rectal bleeding and iron deficiency anemia. - Current Medication List Current Medications: Active Medications Acetaminophen (Tylenol -) 650 mg PO Q6H PRN PRN Reason: PAIN 6-10 Ceftriaxone Sodium 2 gm/ (Dextrose) 100 mls @ 100 mls/hr IVPB DAILY MATTI; Protocol Last Admin: 11/26/19 09:00 Dose: 100 mls/hr Documented by: Metronidazole (Flagyl 500mg Premixed Ivpb -) 500 mg in 100 mls @ 100 mls/hr IVPB Q8H-IV MATTI Last Admin: 11/27/19 01:22 Dose: 100 mls/hr Documented by: Dextrose/Sodium Chloride (Dextrose 5%-Normal Saline+20 Meq Kcl -) 20 meq in 1,000 mls @ 100 mls/hr IV ASDIR MATTI Last Admin: 11/27/19 04:13 Dose: 100 mls/hr Documented by: Influenza Virus Vaccine (Flulaval Quad [id number] Syr) 60 mcg IM .ONCE ONE Stop: 11/25/19 10:01 Pneumococcal 13-Valent Conj Vacc (Prevnar 13 Syringe -) 0.5 ml IM .ONCE ONE Stop: 11/25/19 10:01 Polyethylene Glycol (Miralax (For Daily Use) -) 17 gm PO TID MATTI Last Admin: 11/27/19 05:43 Dose: Not Given Documented by: - Objective Vital Signs: Vital Signs Temperature 97.8 F 11/27/19 06:00 Pulse Rate 76 11/27/19 06:00 Respiratory Rate 18 11/27/19 06:00 Blood Pressure 146/73 11/27/19 06:00 O2 Sat by Pulse Oximetry (%) 95 11/27/19 06:00 Constitutional: Yes: Well Nourished, No Distress, Calm Eyes: Yes: Conjunctiva Clear, EOM Intact HENT: Yes: Atraumatic, Normocephalic Neck: Yes: Supple, Trachea Midline Cardiovascular: Yes: Regular Rate and Rhythm Respiratory: Yes: Regular, CTA Bilaterally Gastrointestinal: Yes: Normal Bowel Sounds, Soft ...Rectal Exam: Yes: Deferred Genitourinary: Yes: WNL Breast(s): Yes: WNL Musculoskeletal: Yes: WNL Extremities: Yes: WNL Edema: No Peripheral Pulses WNL: Yes Integumentary: Yes: WNL Neurological: Yes: WNL ...Motor Strength: WNL Psychiatric: Yes: WNL Labs: INR, PTT INR 0.99 (0.83-1.09) 11/24/19 00:47 - ....Imaging Other: Report Reviewed (lab data reviewed) Problem List - Problems (1) Lightheadedness Code(s): R42 - DIZZINESS AND GIDDINESS (2) Hepatomegaly Code(s): R16.0 - HEPATOMEGALY, NOT ELSEWHERE CLASSIFIED (3) Fatty infiltration of liver Code(s): K76.0 - FATTY (CHANGE OF) LIVER, NOT ELSEWHERE CLASSIFIED (4) BPH (benign prostatic hyperplasia) Code(s): N40.0 - BENIGN PROSTATIC HYPERPLASIA WITHOUT LOWER URINRY TRACT SYMP (5) GI bleed Code(s): K92.2 - GASTROINTESTINAL HEMORRHAGE, UNSPECIFIED Qualifiers: GI bleed type/associated pathology: unspecified gastrointestinal hemorrhage type Qualified Code(s): K92.2 - Gastrointestinal hemorrhage, unspecified (6) Diverticulosis Code(s): K57.90 - DVRTCLOS OF INTEST, PART UNSP, W/O PERF OR ABSCESS W/O BLEED (7) Diverticulitis Code(s): K57.92 - DVTRCLI OF INTEST, PART UNSP, W/O PERF OR ABSCESS W/O BLEED (8) Colitis Code(s): K52.9 - NONINFECTIVE GASTROENTERITIS AND COLITIS, UNSPECIFIED Assessment/Plan Assessment/plan: acute rectal bleeding, acute early diverticulitis/colitis, acute ischemic colitis, ?colonic angiodysplasia, s/p CVA/TIA, s/p left carotid endarterectomy; IV venofer for an acute iron deficiency anemia secondary to acute blood loss; IV Ceftriaxone and Metronidazole for acute diverticulitis/colitis; SCD'S, out of bed in chair as tolerated and physical therapy for DVT prophylaxis; IV fluids for hydration and hypotension; miralax for constipation.
[2019-11-27 08:27] LABS: ALBUMIN 3.6 g/dl (3.4-5.0); BASO % 0.4 % (0-2.0); BILIRUBIN,TOTAL 0.4 mg/dL (0.2-1); BLOOD UREA NITROGEN 3.9 mg/dL (7-18); CALCIUM 8.6 mg/dL (8.5-10.1); CREATININE 0.9 mg/dL (0.55-1.3); EOS % 2.2 % (0-4.5); HEMATOCRIT 28.1 % (35.4-49); HEMOGLOBIN 9.6 GM/dL (11.7-16.9); LYMPH % 36.4 % (8-40); MCH 31.1 pg (25.7-33.7); MEAN CELL VOLUME 91.2 fl (80-96); MEAN PLT VOLUME 9.5 fl (7.5-11.1); MONO % 7.3 % (3.8-10.2); NEUT % 53.7 % (42.8-82.8); PLATELET COUNT 207 K/MM3 (134-434); POTASSIUM 3.8 mmol/L (3.5-5.1); RBC 3.08 M/mm3 (4.00-5.60); RDW 13.6 % (11.9-15.9); TOT PROT 6.3 g/dl (6.4-8.2); WHITE BLOOD COUNT 7.3 K/mm3 (4.0-10.0)
[2019-11-27] MEDS ORDERED: DEXTROSE 5%-WATER 100 ML IVPB ONE (09:37)
[2019-11-27] MEDS: CEFTRIAXONE 2 GM in DEXTROSE 5%-WATER 100 ML IVPB SCH (09:52)
[2019-11-27] MEDS ORDERED: FLU VACCINE (FLULAVAL) PF 60 MCG/0.5 ML SYRINGE 2020-2021 IM ONE (10:00)
[2019-11-27] MEDS ORDERED: PNEUMOC 13-VAL CONJ-DIP CRM/PF 0.5 ML DISP.SYRIN IM ONE (10:00)
--- NOTE | 2019-11-27 12:45 | PN ---
Progress Note (short form) - Note Progress Note: GI Procedure Note: Please see scanned EGD and colonoscopy reports. The EGD revealed a small linear and shallow proximal antral ulcer with adjacent gastritis. No bleeding was evident. Colonoscopy revealed resolving ischemic colitis in the descending colon severe diverticulitis was noted universally. A 3millimter polyp was removed from the cecum. The bleeding is felt to have emanated from the ischemic colitis. Will advance diet. Will need pantaprazole BID therapy and repeat EGD in 3 months. If no recurring bleeding occurs can consider discharge in am. Problem List - Problems (1) Ischemic colitis Code(s): K55.9 - VASCULAR DISORDER OF INTESTINE, UNSPECIFIED (2) Rectal bleeding Code(s): K62.5 - HEMORRHAGE OF ANUS AND RECTUM (3) History of CVA (cerebrovascular accident) Code(s): Z86.73 - PRSNL HX OF TIA (TIA), AND CEREB INFRC W/O RESID DEFICITS (4) Diverticulosis Code(s): K57.90 - DVRTCLOS OF INTEST, PART UNSP, W/O PERF OR ABSCESS W/O BLEED (5) Fatty infiltration of liver Code(s): K76.0 - FATTY (CHANGE OF) LIVER, NOT ELSEWHERE CLASSIFIED (6) Colon polyp Code(s): K63.5 - POLYP OF COLON (7) Gastric ulcer Code(s): K25.9 - GASTRIC ULCER, UNSP ACUTE OR CHRONIC, W/O HEMOR OR PERF (8) Gastritis and duodenitis Code(s): K29.90 - GASTRODUODENITIS, UNSPECIFIED, WITHOUT BLEEDING (9) Bleeding external hemorrhoids Code(s): K64.4 - RESIDUAL HEMORRHOIDAL SKIN TAGS
[2019-11-27] MEDS ORDERED: PT OWN MED DRAWER 7, Y5N ONE ×2 (12:54→13:23)
[2019-11-27] MEDS: PANTOPRAZOLE 40 MG TABLET PO SCH (21:10)
--- NOTE | 2019-11-27 22:24 | PN ---
Progress Note, Physician Chief Complaint: S/P COLONSCOPY FINDINGS NOTED NO C/O ABDOMINAL PAIN OR RECTAL BLEEDING NO FEVER/CHILLS WBC WNL - Current Medication List Current Medications: Active Medications Acetaminophen (Tylenol -) 650 mg PO Q6H PRN PRN Reason: PAIN 6-10 Ceftriaxone Sodium 2 gm/ (Dextrose) 100 mls @ 100 mls/hr IVPB DAILY [facility]; Protocol Last Admin: 11/27/19 09:52 Dose: 100 mls/hr Documented by: Metronidazole (Flagyl 500mg Premixed Ivpb -) 500 mg in 100 mls @ 100 mls/hr IVPB Q8H-IV [facility]TI Last Admin: 11/27/19 18:35 Dose: 100 mls/hr Documented by: Pantoprazole Sodium (Protonix -) 40 mg PO BID [facility] Last Admin: 11/27/19 21:10 Dose: 40 mg Documented by: Polyethylene Glycol (Miralax (For Daily Use) -) 17 gm PO TID [facility] Last Admin: 11/27/19 21:11 Dose: 17 gm Documented by: - Objective Vital Signs: Vital Signs Temperature 98.9 F 11/27/19 21:08 Pulse Rate 75 11/27/19 21:08 Respiratory Rate 18 11/27/19 21:08 Blood Pressure 135/60 11/27/19 21:08 O2 Sat by Pulse Oximetry (%) 97 11/27/19 21:08 Constitutional: Yes: No Distress Eyes: Yes: Conjunctiva Clear Cardiovascular: Yes: Regular Rate and Rhythm, S1, S2 Respiratory: Yes: CTA Bilaterally Gastrointestinal: Yes: Normal Bowel Sounds, Soft, Other (NO ABDOMINAL TENDERNESS) Labs: CBC, BMP 11/27/19 07:05 11/27/19 07:05 INR, PTT INR 0.99 (0.83-1.09) 11/24/19 00:47 Assessment/Plan LOWER GI BLEED RESOLVED CONTINUE EMPIRIC CEFTRIAXOME/ FLAGYL
[2019-11-28] MEDS: POLYETHYLENE GLYCOL 3350 119 GM BTL PO SCH ×3 (05:41→21:44)
--- NOTE | 2019-11-28 08:14 | PN ---
Progress Note, Physician Chief Complaint: Patient seen and examined at the bedside, brown stool mixed with blood today in am. History of Present Illness: This 69 yr old male with PMH of GI bleeding 4 years ago, CVA/TIA, and left carotid endarterectomy admitted via ER with an acute rectal bleeding, and an acute iron deficiency anemia secondary to acute blood loss. - Current Medication List Current Medications: Active Medications Acetaminophen (Tylenol -) 650 mg PO Q6H PRN PRN Reason: PAIN 6-10 Ceftriaxone Sodium 2 gm/ (Dextrose) 100 mls @ 100 mls/hr IVPB DAILY [facility]; Protocol Last Admin: 11/27/19 09:52 Dose: 100 mls/hr Documented by: Metronidazole (Flagyl 500mg Premixed Ivpb -) 500 mg in 100 mls @ 100 mls/hr IVPB Q8H-IV [facility] Last Admin: 11/28/19 01:16 Dose: 100 mls/hr Documented by: Pantoprazole Sodium (Protonix -) 40 mg PO BID [facility] Last Admin: 11/27/19 21:10 Dose: 40 mg Documented by: Polyethylene Glycol (Miralax (For Daily Use) -) 17 gm PO TID [facility] Last Admin: 11/28/19 05:41 Dose: Not Given Documented by: - Objective Vital Signs: Vital Signs Temperature 98 F 11/28/19 05:00 Pulse Rate 80 11/28/19 05:00 Respiratory Rate 18 11/28/19 05:00 Blood Pressure 149/76 11/28/19 05:00 O2 Sat by Pulse Oximetry (%) 98 11/28/19 05:00 Constitutional: Yes: Well Nourished, No Distress, Calm Eyes: Yes: Conjunctiva Clear, EOM Intact HENT: Yes: Atraumatic, Normocephalic Neck: Yes: Supple, Trachea Midline Cardiovascular: Yes: Regular Rate and Rhythm Respiratory: Yes: Regular, CTA Bilaterally Gastrointestinal: Yes: Normal Bowel Sounds, Soft ...Rectal Exam: Yes: Deferred Genitourinary: Yes: WNL Breast(s): Yes: WNL Musculoskeletal: Yes: WNL Extremities: Yes: WNL Edema: No Peripheral Pulses WNL: Yes Integumentary: Yes: WNL Neurological: Yes: WNL ...Motor Strength: WNL Psychiatric: Yes: WNL Labs: CBC, BMP 11/27/19 07:05 10/12/20 07:05 INR, PTT INR 0.99 (0.83-1.09) 11/24/19 00:47 - ....Imaging Other: Report Reviewed (lab data reviewed) Problem List - Problems (1) Lightheadedness Code(s): R42 - DIZZINESS AND GIDDINESS (2) Hepatomegaly Code(s): R16.0 - HEPATOMEGALY, NOT ELSEWHERE CLASSIFIED (3) Fatty infiltration of liver Code(s): K76.0 - FATTY (CHANGE OF) LIVER, NOT ELSEWHERE CLASSIFIED (4) BPH (benign prostatic hyperplasia) Code(s): N40.0 - BENIGN PROSTATIC HYPERPLASIA WITHOUT LOWER URINRY TRACT SYMP (5) GI bleed Code(s): K92.2 - GASTROINTESTINAL HEMORRHAGE, UNSPECIFIED Qualifiers: GI bleed type/associated pathology: unspecified gastrointestinal hemorrhage type Qualified Code(s): K92.2 - Gastrointestinal hemorrhage, unspecified (6) Diverticulosis Code(s): K57.90 - DVRTCLOS OF INTEST, PART UNSP, W/O PERF OR ABSCESS W/O BLEED (7) Diverticulitis Code(s): K57.92 - DVTRCLI OF INTEST, PART UNSP, W/O PERF OR ABSCESS W/O BLEED (8) Colitis Code(s): K52.9 - NONINFECTIVE GASTROENTERITIS AND COLITIS, UNSPECIFIED Assessment/Plan Assessment/plan: acute rectal bleeding still persists, acute iron deficiency anemia secondary to acute blood loss, acute diverticulitis and ischemic colitis of the descending colon, acute gastritis, acute antral ulcer; IV Ceftriaxone and Metronidazole for acute diverticulitis/ischemic colitis; oral pantoprazole for acute antral ulcer and gastritis; miralax for constipation; SCD's and physical therapy for DVT prophylaxis.
[2019-11-28] MEDS ORDERED: DEXTROSE 5%-WATER 100 ML IVPB ONE (09:29)
[2019-11-28] MEDS: PANTOPRAZOLE 40 MG TABLET PO SCH ×2 (10:03→21:44)
[2019-11-28] MEDS: CEFTRIAXONE 2 GM in DEXTROSE 5%-WATER 100 ML IVPB SCH (10:04)
[2019-11-28 10:23] LABS: BASO % 0.5 % (0-2.0); EOS % 2.6 % (0-4.5); HEMATOCRIT 26.6 % (35.4-49); LYMPH % 22.4 % (8-40); MCH 31.2 pg (25.7-33.7); MEAN CELL VOLUME 91.9 fl (80-96); MEAN PLT VOLUME 9.1 fl (7.5-11.1); MONO % 7.1 % (3.8-10.2); NEUT % 67.4 % (42.8-82.8); PLATELET COUNT 202 K/MM3 (134-434); RBC 2.89 M/mm3 (4.00-5.60); RDW 13.9 % (11.9-15.9); WHITE BLOOD COUNT 6.2 K/mm3 (4.0-10.0)
[2019-11-28 10:49] LABS: ALBUMIN 3.3 g/dl (3.4-5.0); BILIRUBIN,TOTAL 0.3 mg/dL (0.2-1); BLOOD UREA NITROGEN 5.6 mg/dL (7-18); CALCIUM 8.7 mg/dL (8.5-10.1); CREATININE 0.9 mg/dL (0.55-1.3); POTASSIUM 4.2 mmol/L (3.5-5.1); TOT PROT 5.9 g/dl (6.4-8.2)
[2019-11-28 16:08] LABS: BASO % 0.4 % (0-2.0); EOS % 3.1 % (0-4.5); HEMATOCRIT 26.8 % (35.4-49); HEMOGLOBIN 9.2 GM/dL (11.7-16.9); LYMPH % 29.2 % (8-40); MCH 31.7 pg (25.7-33.7); MCHC 34.2 g/dl (32.0-35.9); MEAN CELL VOLUME 92.8 fl (80-96); MEAN PLT VOLUME 9.2 fl (7.5-11.1); MONO % 7.8 % (3.8-10.2); NEUT % 59.5 % (42.8-82.8); PLATELET COUNT 210 K/MM3 (134-434); RBC 2.89 M/mm3 (4.00-5.60); RDW 13.9 % (11.9-15.9); WHITE BLOOD COUNT 6.1 K/mm3 (4.0-10.0)
--- NOTE | 2019-11-28 16:21 | PN ---
Progress Note, Physician Chief Complaint: S/P COLONSCOPY FINDINGS NOTED NO C/O ABDOMINAL PAIN OR RECTAL BLEEDING NO FEVER/CHILLS WBC WNL - Current Medication List Current Medications: Active Medications Acetaminophen (Tylenol -) 650 mg PO Q6H PRN PRN Reason: PAIN 6-10 Last Admin: 11/28/19 10:04 Dose: 650 mg Documented by: Ceftriaxone Sodium 2 gm/ (Dextrose) 100 mls @ 100 mls/hr IVPB DAILY [facility]; Protocol Last Admin: 11/28/19 10:04 Dose: 100 mls/hr Documented by: Metronidazole (Flagyl 500mg Premixed Ivpb -) 500 mg in 100 mls @ 100 mls/hr IVPB Q8H-IV MATTI Last Admin: 11/28/19 10:03 Dose: 100 mls/hr Documented by: Pantoprazole Sodium (Protonix -) 40 mg PO BID [facility] Last Admin: 11/28/19 10:03 Dose: 40 mg Documented by: Polyethylene Glycol (Miralax (For Daily Use) -) 17 gm PO TID [facility] Last Admin: 11/28/19 15:09 Dose: 17 gm Documented by: Sitagliptin Phosphate (Januvia -) 25 mg PO DAILY@0700 [facility] - Objective Vital Signs: Vital Signs Temperature 98.0 F 11/28/19 16:03 Pulse Rate 69 11/28/19 16:03 Respiratory Rate 18 11/28/19 16:03 Blood Pressure 123/69 11/28/19 16:03 O2 Sat by Pulse Oximetry (%) 98 11/28/19 16:03 Constitutional: Yes: No Distress Eyes: Yes: Conjunctiva Clear Cardiovascular: Yes: Regular Rate and Rhythm, S1, S2 Respiratory: Yes: CTA Bilaterally Gastrointestinal: Yes: Normal Bowel Sounds, Soft. No: Tenderness Edema: No Labs: CBC, BMP 11/28/19 09:08 INR, PTT INR 0.99 (0.83-1.09) 11/24/19 00:47 Assessment/Plan LOWER GI BLEED RESOLVED ? ISCHEMIC COLITIS SUBSTITUTE AUGMENTIN 875MG PO BID X 7D
--- NOTE | 2019-11-28 20:41 | PN.GI ---
GI Progress Note Subjective: GI NOte: Had some bloody BMs this AM which ckleared and rpeat Hb is stable. Suspect blood from colonoscopic biopsies - Objective Vital Signs: Vital Signs Temperature 98.7 F 11/28/19 18:00 Pulse Rate 75 11/28/19 18:00 Respiratory Rate 18 11/28/19 18:00 Blood Pressure 135/71 11/28/19 18:00 O2 Sat by Pulse Oximetry (%) 96 11/28/19 18:00 Laboratory Tests 11/27/19 11/28/19 11/28/19 07:05 09:08 15:25 WBC 6.1 Hgb 9.6 L 9.0 L 9.2 L Constitutional: Calm ...Auscultate: Yes: Normoactive Bowel Sounds ...Palpate: Yes: Soft, Other (nontender) Labs: CBC, BMP 11/28/19 15:25 11/28/19 09:08 INR, PTT INR 0.99 (0.83-1.09) 11/24/19 00:47 Assessment/Plan Impression: - Resolved ischemic colitis bleeding. - Gastric ulcer - Biopsies pending - Personal h/o peptic ulcer and FH of stomach cancer - Fatty liver Plan: - Continue solid diet - Miralax daily - If no further bleeding then have no GI objections to discharge tomorrow. He has my card and will followup in my office. Advised to continue PPI until repeat EGD in 3 months, unless his pathology dictates otherwise Problem List - Problems (1) Ischemic colitis Code(s): K55.9 - VASCULAR DISORDER OF INTESTINE, UNSPECIFIED (2) Rectal bleeding Code(s): K62.5 - HEMORRHAGE OF ANUS AND RECTUM (3) History of CVA (cerebrovascular accident) Code(s): Z86.73 - PRSNL HX OF TIA (TIA), AND CEREB INFRC W/O RESID DEFICITS (4) Diverticulosis Code(s): K57.90 - DVRTCLOS OF INTEST, PART UNSP, W/O PERF OR ABSCESS W/O BLEED (5) Fatty infiltration of liver Code(s): K76.0 - FATTY (CHANGE OF) LIVER, NOT ELSEWHERE CLASSIFIED (6) Colon polyp Code(s): K63.5 - POLYP OF COLON (7) Gastric ulcer Code(s): K25.9 - GASTRIC ULCER, UNSP ACUTE OR CHRONIC, W/O HEMOR OR PERF (8) Gastritis and duodenitis Code(s): K29.90 - GASTRODUODENITIS, UNSPECIFIED, WITHOUT BLEEDING (9) Bleeding external hemorrhoids Code(s): K64.4 - RESIDUAL HEMORRHOIDAL SKIN TAGS
[2019-11-29] MEDS: POLYETHYLENE GLYCOL 3350 119 GM BTL PO SCH (06:52)
--- NOTE | 2019-11-29 08:22 | DS ---
Physical Examination Vital Signs: Vital Signs Temperature 98.1 F 11/29/19 06:00 Pulse Rate 75 11/29/19 06:00 Respiratory Rate 18 11/29/19 06:00 Blood Pressure 151/81 11/29/19 06:00 O2 Sat by Pulse Oximetry (%) 95 11/29/19 06:00 Constitutional: Yes: Well Nourished, No Distress, Calm Eyes: Yes: Conjunctiva Clear, EOM Intact HENT: Yes: Atraumatic, Normocephalic Neck: Yes: Supple, Trachea Midline Cardiovascular: Yes: Regular Rate and Rhythm Respiratory: Yes: Regular, CTA Bilaterally Gastrointestinal: Yes: Normal Bowel Sounds, Soft ...Rectal Exam: Yes: Deferred Renal/: Yes: WNL Breast(s): Yes: WNL Musculoskeletal: Yes: WNL Extremities: Yes: WNL Edema: No Peripheral Pulses WNL: Yes Integumentary: Yes: WNL Neurological: Yes: WNL ...Motor Strength: WNL Psychiatric: Yes: WNL Labs: CBC, BMP 11/28/19 15:25 11/28/19 09:08 Discharge Summary Problems reviewed: Yes Reason For Visit: GASTROINTESTINAL HEMORRHAGE Current Active Problems BPH (benign prostatic hyperplasia) (Acute) Bleeding external hemorrhoids (Acute) Colitis (Acute) Colon polyp (Acute) Diverticulitis (Acute) Diverticulosis (Acute) Fatty infiltration of liver (Acute) GI bleed (Acute) Gastric ulcer (Acute) Gastritis and duodenitis (Acute) Hepatomegaly (Acute) History of CVA (cerebrovascular accident) (Acute) Ischemic colitis (Acute) Lightheadedness (Acute) Lower GI bleed (Acute) Rectal bleeding (Acute) Condition: Stable - Instructions Diet, Activity, Other Instructions: Continue present meds. Activity as tolerated. Follow up with Dr. Campbell within one week. Total time spent over 30 minutes. Referrals: Marychuy Campbell MD [Primary Care Provider] - Disposition: HOME
[2019-11-29 09:16] LABS: BASO % 0.5 % (0-2.0); EOS % 3.9 % (0-4.5); HEMATOCRIT 25.6 % (35.4-49); HEMOGLOBIN 8.7 GM/dL (11.7-16.9); LYMPH % 28.1 % (8-40); MCH 31.5 pg (25.7-33.7); MEAN CELL VOLUME 92.7 fl (80-96); MEAN PLT VOLUME 8.8 fl (7.5-11.1); MONO % 8.6 % (3.8-10.2); NEUT % 58.9 % (42.8-82.8); PLATELET COUNT 209 K/MM3 (134-434); RBC 2.77 M/mm3 (4.00-5.60); WHITE BLOOD COUNT 5.2 K/mm3 (4.0-10.0)
[2019-11-29] MEDS ORDERED: FLU VACCINE (FLULAVAL) PF 60 MCG/0.5 ML SYRINGE 2020-2021 IM ONE (10:00)
[2019-11-29] MEDS ORDERED: AMOX TR/POT CLAV 875MG/125MG TABLETS (FP) PO SCH (10:30)
[2019-11-29] MEDS: PANTOPRAZOLE 40 MG TABLET PO SCH (10:51)
[2019-11-29 12:21] VITALS: BP 136/73; PULSE 85; TEMP 98.3
--- NOTE | 2019-11-29 17:40 | PATH ---
Surgical Pathology Report Patient Name: YUVAL GUERRERO Med. Rec. #: [id number] /Age/Gender: 1950 (Age: 69) / M Account: [id number] Location: [address] [place] [address]/[facility] Taken: 11/27/2019 Received: 11/27/2019 Reported: 11/29/2019 Physicians: Soniya Post M.D. Specimen(s) Received A: ANTRUM B: CECAL POLYP C: LIPOMA Clinical History GI bleed Postoperative diagnosis: Hiatal hernia, duodenitis, gastric ulcer, colon diverticulosis, colon polyp, hemorrhoids, ischemic colitis in descending colon Final Diagnosis A. STOMACH, ANTRUM, BIOPSY: GASTRIC ANTRAL MUCOSA WITH MILD CHRONIC GASTRITIS. IMMUNOHISTOCHEMICAL STAIN FOR H. PYLORI IS NEGATIVE. B. CECAL POLYP, BIOPSY: POLYPOID COLONIC MUCOSA WITH SMALL LYMPHOID AGGREGATE. C. DESCENDING COLON, LIPOMA VERSUS ISCHEMIC COLITIS, BIOPSY: POLYPOID COLONIC MUCOSA WITH PROMINENT LYMPHOID AGGREGATES. Positive and negative controls (internal if applicable) show appropriate results. Electronically Signed Josephine Espinosa M.D. Gross Description A. Received in formalin, labeled "biopsy antrum" is a cruz, irregular portion of soft tissue measuring 0.3 cm. in greatest dimension. The specimen is submitted in toto in one cassette. B. Received in formalin, labeled "biopsy cecal polyp" is a cruz, irregular portion of soft tissue measuring 0.4 cm. in greatest dimension. The specimen is submitted in toto in one cassette. C. Received in formalin, labeled "biopsy lipoma versus ischemic colitis descending colon" are 4 cruz, irregular portions of soft tissue ranging from 0.2-0.3 cm. in greatest dimension. The specimens are submitted in toto in one cassette. DL/11/27/2019 saudi/11/27/2019
== END 2019-11-29 11:50 | disposition home or self-care (01) | DRG 394 ==
LOC: JER 04:10 → JERBED 08:51 → J5S 23:03
PROVIDERS: ADMIT Internal Medicine; ATTEND Internal Medicine
PROC: 0DBM8ZX Excision of Descending Colon, Via Natural or Artificial Opening Endoscopic, Diagnostic (ICD-10-PCS; 2019-11-27)
PROC: 0DB78ZX Excision of Stomach, Pylorus, Via Natural or Artificial Opening Endoscopic, Diagnostic (ICD-10-PCS; 2019-11-27)
PROC: 0DBH8ZX Excision of Cecum, Via Natural or Artificial Opening Endoscopic, Diagnostic (ICD-10-PCS; principal; 2019-11-27 10:30)
DX: K55.9 Vascular disorder of intestine, unspecified (principal); E87.2 Acidosis; D62 Acute posthemorrhagic anemia; R16.0 Hepatomegaly, not elsewhere classified; K76.0 Fatty (change of) liver, not elsewhere classified; K52.9 Noninfective gastroenteritis and colitis, unspecified; N40.0 Benign prostatic hyperplasia without lower urinary tract symptoms; D50.9 Iron deficiency anemia, unspecified; K59.00 Constipation, unspecified; E66.9 Obesity, unspecified; K63.5 Polyp of colon; K57.30 Diverticulosis of large intestine without perforation or abscess without bleeding; K64.8 Other hemorrhoids; K25.9 Gastric ulcer, unspecified as acute or chronic, without hemorrhage or perforation; K64.4 Residual hemorrhoidal skin tags; K29.70 Gastritis, unspecified, without bleeding; K44.9 Diaphragmatic hernia without obstruction or gangrene; Z68.26 Body mass index [BMI] 26.0-26.9, adult
CPT/HCPCS: 36415; 74174-TC; 80053; 82272; 82728; 83036; 83540; 83550; 83605; 84484; 85025; 85027; 85610; 85730; 86850; 86900; 86901; 87040; 88305-TC; 90670; 93005; 93010; 97116-GP; 97161-GP; 99285-25; C9803; J1756; Q2036; Q9967; U0003

== ENCOUNTER 2020-11-06 19:11 | Emergency (ER) | payer OTHER ==
[2020-11-06 19:21] VITALS: BP 163/90; PULSE 101; TEMP 98.7; BMI 30.8
[2020-11-06] MEDS ORDERED: HYDROCORTISONE 1% TOPICAL CREAM 30 GM TUBE TP ONE (20:28)
== END 2020-11-06 21:37 | disposition home or self-care (01) ==
LOC: JER 19:11
DX: R21 Rash and other nonspecific skin eruption (principal)
CPT/HCPCS: 99283-25

== ENCOUNTER 2020-11-23 10:06 | Observation (INO) | payer OTHER ==
[2020-11-23] MEDS ORDERED: SODIUM CHLORIDE 0.9% 500 ML INFUS.BAG IV ONE (10:31)
[2020-11-23 11:06] LABS: VENOUS BASE EXCESS -3.8 mmol/L (-2-2); VENOUS O2 SATURATION 57.1 % (70-80); VENOUS PCO2 43.1 mmHg (38-52); VENOUS PH 7.328 (7.310-7.410)
[2020-11-23 11:11] LABS: BASO % 0.6 % (0-2.0); EOS % 3.4 % (0-4.5); HEMATOCRIT 47.7 % (35.4-49); HEMOGLOBIN 15.4 GM/dL (11.7-16.9); MCHC 32.3 g/dl (32.0-35.9); MEAN CELL VOLUME 77.4 fl (80-96); MEAN PLT VOLUME 7.9 fl (7.5-11.1); MONO % 6.9 % (3.8-10.2); NEUT % 62.1 % (42.8-82.8); PLATELET COUNT 223 10^3/uL (134-434); RBC 6.17 M/mm3 (4.00-5.60); RDW 18.7 % (11.9-15.9); WHITE BLOOD COUNT 6.4 K/mm3 (4.0-10.0)
[2020-11-23 11:18] LABS: INR 1.02 (0.83-1.09); PROTHROMBIN TIME (PATIENT) 12.4 SEC (9.7-13.0)
[2020-11-23 11:21] LABS: ACTIVATED PTT 38.2 SECONDS (25.2-36.5)
[2020-11-23 11:34] LABS: CHLORIDE 104 mmol/L (98-107); SODIUM 136 mmol/L (136-145)
[2020-11-23 11:34] LABS: PH,URINE 5.5 (5.0-8.0); URINE APPEARANCE CLEAR; URINE BILIRUBIN NEGATIVE (NEGATIVE); URINE COLOR YELLOW; URINE GLUCOSE (UA) 3+ (NEGATIVE); URINE KETONE TRACE (NEGATIVE); URINE LEUK ESTERASE NEGATIVE (NEGATIVE); URINE NITRITE NEGATIVE (NEGATIVE); URINE PROTEIN NEGATIVE (NEGATIVE); URINE UROBILINOGEN 0.2 mg/dL (0.2-1.0)
[2020-11-23 11:37] LABS: ALBUMIN 3.4 g/dl (3.4-5.0); CALCIUM 8.4 mg/dL (8.5-10.1)
[2020-11-23 11:38] LABS: ANION GAP 11 MMOL/L (8-16); BLOOD UREA NITROGEN 8.9 mg/dL (7-18); CO2 21 mmol/L (21-32); GLUCOSE,RANDOM 317 mg/dL (74-106); MAGNESIUM 1.7 mg/dL (1.8-2.4)
[2020-11-23 11:40] LABS: SGPT/ALT 33 U/L (13-61)
[2020-11-23 11:41] LABS: CREATININE 1.1 mg/dL (0.55-1.3); PHOSPHOROUS 2.3 mg/dL (2.5-4.9); SGOT/AST 17 U/L (15-37)
[2020-11-23 11:42] LABS: BILIRUBIN,TOTAL 0.4 mg/dL (0.2-1)
[2020-11-23 11:43] LABS: ALK PHOS 75 U/L (45-117)
[2020-11-23 11:57] LABS: LACTIC ACID 3.4 mmol/L (0.4-2.0)
[2020-11-23 12:21] LABS: N-TERMINAL BNP 98.1 pg/ml (5-125)
[2020-11-23] MEDS ORDERED: MAGNESIUM SULF 50% (8.12 MEQ/2 ML-1 GM VIAL) IVPB ONE (17:53)
[2020-11-23] MEDS ORDERED: MAGNESIUM 1GM/D5W - 1 GM/100 ML IVPB IVPB ONE (17:54)
[2020-11-23] MEDS ORDERED: hydrOXYzine PAMOATE 25 MG CAPSULE (FP) PO PRN (20:55)
[2020-11-24] MEDS: ENOXAPARIN NA (PORCINE) 40 MG/0.4 ML DISP.SYRIN SQ SCH ×2 (00:03→09:31)
[2020-11-24] MEDS: ACETAMINOPHEN 325 MG TABLET (FP) PO PRN ×2 (00:03→06:53)
[2020-11-24] MEDS: PANTOPRAZOLE 40 MG TABLET PO SCH ×2 (00:03→09:31)
[2020-11-24] MEDS: FUROSEMIDE 20 MG TABLET (FP) PO SCH ×2 (00:03→09:31)
[2020-11-24] MEDS: INSULIN (LEVEMIR) 100 UNITS/ML UNITS SQ SCH ×3 (00:07→21:40)
[2020-11-24] MEDS: INSULIN SLIDING SCALE (NOVOLOG) 1 VIAL SQ SCH ×4 (00:07→17:33)
[2020-11-24 03:38] VITALS: BMI 29.7
[2020-11-24 07:34] LABS: BASO % 0.7 % (0-2.0); EOS % 2.7 % (0-4.5); HEMATOCRIT 43.7 % (35.4-49); HEMOGLOBIN 14.3 GM/dL (11.7-16.9); MCH 25.5 pg (25.7-33.7); MCHC 32.7 g/dl (32.0-35.9); MEAN CELL VOLUME 77.9 fl (80-96); MEAN PLT VOLUME 8.6 fl (7.5-11.1); MONO % 8.7 % (3.8-10.2); NEUT % 61.9 % (42.8-82.8); PLATELET COUNT 227 10^3/uL (134-434); RBC 5.62 M/mm3 (4.00-5.60); RDW 18.9 % (11.9-15.9); WHITE BLOOD COUNT 6.2 K/mm3 (4.0-10.0)
[2020-11-24 07:38] LABS: CALCIUM 8.9 mg/dL (8.5-10.1)
[2020-11-24 07:39] LABS: BLOOD UREA NITROGEN 7.4 mg/dL (7-18); MAGNESIUM 2.2 mg/dL (1.8-2.4)
[2020-11-24 07:42] LABS: CREATININE 0.9 mg/dL (0.55-1.3)
[2020-11-24] MEDS: OMEGA-3 ACID ETHYL ESTERS (FATTY-ACIDS) 1 GM CAPSULE (FP) PO SCH (21:40)
[2020-11-24] MEDS ORDERED: ATORVASTATIN CA 40 MG TABLET (FP) PO SCH (22:00)
[2020-11-25] MEDS: INSULIN SLIDING SCALE (NOVOLOG) 1 VIAL SQ SCH ×3 (07:08→16:54)
[2020-11-25] MEDS ORDERED: REGADENOSON 0.4 MG/5 ML PRE-FILLED SYRINGE IVPUSH ONE ×2 (10:12→10:30)
[2020-11-25] MEDS: INSULIN (LEVEMIR) 100 UNITS/ML UNITS SQ SCH (12:29)
[2020-11-25] MEDS: ENOXAPARIN NA (PORCINE) 40 MG/0.4 ML DISP.SYRIN SQ SCH ×2 (12:37→13:13)
[2020-11-25] MEDS: PANTOPRAZOLE 40 MG TABLET PO SCH (12:37)
[2020-11-25] MEDS: OMEGA-3 ACID ETHYL ESTERS (FATTY-ACIDS) 1 GM CAPSULE (FP) PO SCH (12:37)
[2020-11-25 15:31] VITALS: BP 119/73; PULSE 86; TEMP 98.5
== END 2020-11-25 18:40 | disposition home or self-care (01) ==
LOC: JER 10:06 → JERBED 17:58 → J4W 23:22
PROVIDERS: ADMIT Internal Medicine; ATTEND Internal Medicine
PROC: 3E023GC Introduction of Other Therapeutic Substance into Muscle, Percutaneous Approach (ICD-10-PCS; principal; 2020-11-23)
PROC: 3E013VG Introduction of Insulin into Subcutaneous Tissue, Percutaneous Approach (ICD-10-PCS; 2020-11-23)
PROC: 3E033GC Introduction of Other Therapeutic Substance into Peripheral Vein, Percutaneous Approach (ICD-10-PCS; 2020-11-23)
PROC: 3E0337Z Introduction of Electrolytic and Water Balance Substance into Peripheral Vein, Percutaneous Approach (ICD-10-PCS; 2020-11-23)
DX: R00.0 Tachycardia, unspecified (principal); E87.2 Acidosis; E83.42 Hypomagnesemia; M79.662 Pain in left lower leg; E78.5 Hyperlipidemia, unspecified; K25.9 Gastric ulcer, unspecified as acute or chronic, without hemorrhage or perforation; R43.9 Unspecified disturbances of smell and taste; K76.0 Fatty (change of) liver, not elsewhere classified; I44.7 Left bundle-branch block, unspecified; Z79.4 Long term (current) use of insulin; Z86.73 Personal history of transient ischemic attack (TIA), and cerebral infarction without residual deficits; K55.9 Vascular disorder of intestine, unspecified; N40.0 Benign prostatic hyperplasia without lower urinary tract symptoms; Z23 Encounter for immunization; E83.39 Other disorders of phosphorus metabolism
CPT/HCPCS: 36415; 71045-TC-FY; 71275-TC; 78452-TC; 80048; 80053; 80061; 81003; 82550; 82553; 82803; 82962; 83605; 83735; 83880; 84100; 84443; 84484; 85025; 85610; 85730; 86850; 86900; 86901; 87040; 87086; 93005; 93010; 93017; 96372; 96374; 96375; 97116-GP; 97161-GP; 99285-25; A9502; C9803; G0378; J2785; Q9967; U0003; U0005

== ENCOUNTER 2022-05-03 11:17 | Emergency (ER) | payer OTHER ==
[2022-05-03 11:24] VITALS: TEMP 97.9; BMI 31.8
[2022-05-03] MEDS ORDERED: SODIUM CHLORIDE 1,000 ML IV STA (12:38)
[2022-05-03 13:00] LABS: BASO % 0.4 % (0-2.0); EOS % 0.3 % (0-4.5); HEMATOCRIT 44.3 % (35.4-49); HEMOGLOBIN 14.7 GM/dL (11.7-16.9); LYMPH % 6.3 % (8-40); MCH 28.8 pg (25.7-33.7); MCHC 33.3 g/dl (32.0-35.9); MEAN CELL VOLUME 86.5 fl (80-96); MEAN PLT VOLUME 7.8 fl (7.5-11.1); PLATELET COUNT 290 10^3/uL (134-434); RBC 5.12 M/mm3 (4.00-5.60); WHITE BLOOD COUNT 16.7 K/mm3 (4.0-10.0)
[2022-05-03 13:12] LABS: EPI CELLS 5 /uL (0-25.1); HYALINE CASTS 2 /uL (0-3.1); URINE APPEARANCE CLEAR; URINE BACTERIA 0 /uL (0-1359); URINE BILIRUBIN NEGATIVE (NEGATIVE); URINE COLOR DK YELLOW; URINE GLUCOSE (UA) NEGATIVE (NEGATIVE); URINE KETONE 1+ (NEGATIVE); URINE LEUK ESTERASE NEGATIVE (NEGATIVE); URINE NITRITE NEGATIVE (NEGATIVE); URINE PROTEIN 2+ (NEGATIVE); URINE RBC 17 /uL (0-23.9); URINE UROBILINOGEN 0.2 mg/dL (0.2-1.0); URINE WBC 6 /uL (0-25.8)
[2022-05-03 13:50] LABS: CALCIUM 9.2 mg/dL (8.5-10.1)
[2022-05-03 13:51] LABS: ALBUMIN 3.2 g/dl (3.4-5.0); BLOOD UREA NITROGEN 12.8 mg/dL (7-18)
[2022-05-03 13:54] LABS: CREATININE 1.1 mg/dL (0.55-1.3)
[2022-05-03 13:55] LABS: BILIRUBIN,TOTAL 1.2 mg/dL (0.2-1); TOT PROT 7.3 g/dl (6.4-8.2)
[2022-05-03] MEDS ORDERED: MAG HYDROX/AL HYDROX/SIMETH 30 ML UNIT-DOSE CUP PO ONE (17:50)
[2022-05-03] MEDS ORDERED: MAG HYDROX/AL HYDROX/SIMETH 30 ML UNIT-DOSE CUP ONE (17:52)
[2022-05-03 17:59] VITALS: BP 133/91; PULSE 85; RESP 20
== END 2022-05-03 17:58 | disposition home or self-care (01) ==
LOC: JER 11:17
PROC: 3E0337Z Introduction of Electrolytic and Water Balance Substance into Peripheral Vein, Percutaneous Approach (ICD-10-PCS; principal; 2022-05-03)
DX: K57.90 Diverticulosis of intestine, part unspecified, without perforation or abscess without bleeding (principal); Z20.822 Contact with and (suspected) exposure to COVID-19
CPT/HCPCS: 0241U-QW; 36415; 71046-TC-FY; 74177-TC; 80053; 81003; 82550; 84484; 85025; 87086; 93005; 93010; 99285-25

== ENCOUNTER 2024-04-17 10:54 | Emergency (ER) | payer OTHER ==
[2024-04-17 11:03] VITALS: BMI 29.9
[2024-04-17] MEDS ORDERED: HYDROmorphone HCL CARPU-JECT 2 MG/1 ML DISP.SYRIN ONE (12:25)
[2024-04-17] MEDS: HYDROmorphone HCl 2 MG/ML VIAL IVPUSH ONE (12:29)
[2024-04-17] MEDS: SODIUM CHLORIDE 1,000 ML IV STA (12:29)
[2024-04-17 12:32] LABS: BASO % 0.6 % (0-2.0); EOS % 0.2 % (0-4.5); HEMATOCRIT 42.8 % (35.4-49); HEMOGLOBIN 14.7 GM/dL (11.7-16.9); LYMPH % 6.7 % (8-40); MCH 29.9 pg (25.7-33.7); MCHC 34.3 g/dl (32.0-35.9); MEAN CELL VOLUME 87.1 fl (80-96); MEAN PLT VOLUME 8.5 fl (7.5-11.1); NEUT % 85.5 % (42.8-82.8); PLATELET COUNT 187 10^3/uL (134-434); RBC 4.91 M/mm3 (4.00-5.60); RDW 13.5 % (11.9-15.9); WHITE BLOOD COUNT 10.7 K/mm3 (4.0-10.0)
[2024-04-17 12:36] VITALS: RESP 18
[2024-04-17 12:42] LABS: INR 1.29 (0.83-1.09); PROTHROMBIN TIME (PATIENT) 14.1 SEC (9.7-13.0)
[2024-04-17 12:44] LABS: ACTIVATED PTT 27.1 SECONDS (25.2-36.5)
[2024-04-17 12:54] LABS: POTASSIUM 3.7 mmol/L (3.5-5.1)
[2024-04-17 12:57] LABS: BLOOD UREA NITROGEN 7.8 mg/dL (7-18); CALCIUM 8.5 mg/dL (8.5-10.1); MAGNESIUM 1.8 mg/dL (1.8-2.4)
[2024-04-17 13:01] LABS: BILIRUBIN,TOTAL 1.4 mg/dL (0.2-1)
[2024-04-17 13:02] LABS: TOT PROT 6.7 g/dl (6.4-8.2)
[2024-04-17 15:11] VITALS: TEMP 99.3
[2024-04-17 15:24] LABS: EPI CELLS 3 /uL (0-25.1); HYALINE CASTS 0 /uL (0-3.1); URINE APPEARANCE CLEAR; URINE BACTERIA 1 /uL (0-1359); URINE BILIRUBIN NEGATIVE (NEGATIVE); URINE COLOR YELLOW; URINE GLUCOSE (UA) TRACE (NEGATIVE); URINE KETONE TRACE (NEGATIVE); URINE LEUK ESTERASE NEGATIVE (NEGATIVE); URINE NITRITE NEGATIVE (NEGATIVE); URINE PROTEIN 1+ (NEGATIVE); URINE RBC 13 /uL (0-23.9); URINE UROBILINOGEN 0.2 mg/dL (0.2-1.0); URINE WBC 11 /uL (0-25.8)
[2024-04-17] MEDS ORDERED: AMPICILLIN NA/SULBACTAM NA 3 GM/100 ML BAG IVPB ONE (15:35)
[2024-04-17] MEDS ORDERED: KETOROLAC TROMETHAMINE 15 MG/ML VIAL ONE (15:39)
[2024-04-17] MEDS: KETOROLAC TROMETHAMINE 15 MG/ML VIAL IVPUSH ONE (15:44)
[2024-04-17] MEDS: AMPICILLIN NA/SULBACTAM NA 3 GM in SODIUM CHLORIDE 100 ML IVPB ONE (15:44)
[2024-04-17 16:45] VITALS: BP 121/64; PULSE 93
== END 2024-04-17 17:26 | disposition home or self-care (01) ==
LOC: JER 10:54
PROC: 3E03329 Introduction of Other Anti-infective into Peripheral Vein, Percutaneous Approach (ICD-10-PCS; principal; 2024-04-17)
PROC: 3E033NZ Introduction of Analgesics, Hypnotics, Sedatives into Peripheral Vein, Percutaneous Approach (ICD-10-PCS; 2024-04-17)
PROC: 3E0333Z Introduction of Anti-inflammatory into Peripheral Vein, Percutaneous Approach (ICD-10-PCS; 2024-04-17)
DX: R10.32 Left lower quadrant pain (principal); K59.00 Constipation, unspecified; R19.7 Diarrhea, unspecified; R11.0 Nausea
CPT/HCPCS: 36415; 74174-TC; 80053; 81003; 83605; 83690; 83735; 85025; 85610; 85730; 86850; 86900; 86901; 93005; 93010; 96365; 96375; 99285-25